=== PATIENT | male | born 1945 | race Caucasian/White ===

== ENCOUNTER 2017-09-19 13:56 | Emergency (ER) | payer BC, MEDICARE ==
[2017-09-19] MEDS ORDERED: TORAdol 30 mg Injection IM ONE (15:00)
--- NOTE | 2017-09-19 15:03 | ERPHSYRPT ---
- History of Present Illness Time Seen by Provider: 09/19/17 15:00 Source: patient Exam Limitations: no limitations Physician History: mild to mod ache pain is positional for one week after falling on right foot and hand, no bleeding, not dizzy, not other injury, pt is ambulatory Allergies/Adverse Reactions: No Known Drug Allergies Allergy (Unverified 09/19/17 15:01) Home Medications: Carvedilol 12.5 mg [Coreg 12.5 mg] 12.5 mg PO BID 09/19/17 [History] Escitalopram Oxalate 10 mg [Lexapro 10 MG] 10 mg PO DAILY 09/19/17 [History] Losartan Potassium [Losartan Potassium] 50 mg PO HS 09/19/17 [History] Lovastatin [Lovastatin] 40 mg PO HS 09/19/17 [History] Rivaroxaban [Xarelto] 20 mg PO DAILY 09/19/17 [History] Spironolactone [Spironolactone] 25 mg PO DAILY 09/19/17 [History] - Review of Systems Respiratory: No Dyspnea Cardiac: No Chest Pain Abdominal/Gastrointestinal: No Abdominal Pain Musculoskeletal: Fall, Injury, Joint Pain, No Back Pain, No Neck Pain Neurological: No Dizziness - Nursing Vital Signs Nursing Vital Signs: Initial Vital Signs Temperature 99.4 F 09/19/17 13:57 Pulse Rate 70 09/19/17 13:57 Respiratory Rate 18 09/19/17 13:57 Blood Pressure 128/74 09/19/17 13:57 Pain Scale Pain Intensity 7 - Physical Exam General Appearance: no apparent distress Neck Exam: normal inspection Respiratory Exam: No respiratory distress Extremity Exam: pelvis stable, other (sts right foot and hand, sen and pulses intact, aliyah, nontender hip and elbow and shoulder) Neurologic Exam: alert, oriented x 3, cooperative Skin Exam: warm, dry - Course Nursing assessment & vital signs reviewed: Yes - Radiology Exams Foot X-ray Interpretation: Interpreted by me, No Fracture Hand X-ray Interpretation: Interpreted by me, No Fracture Lower Leg X-ray Interpretation: Interpreted by me, No Fracture Ordered Tests: Active Orders 24 hr Category Date Time Status Crutches STAT Care 09/19/17 16:57 Ordered FOOT (MINIMUM 3 VIEWS) Stat Exams 09/19/17 15:23 Taken HAND (MINIMUM 3 VIEWS) Stat Exams 09/19/17 15:23 Taken LOWER LEG Stat Exams 09/19/17 15:23 Taken Medication Summary Discontinued Medications Generic Name Dose Route Start Last Admin Trade Name Ty PRN Reason Stop Dose Admin Ketorolac Tromethamine 60 mg 09/19/17 15:00 09/19/17 15:25 Toradol 30 Mg Injection IM 09/19/17 15:01 60 mg STAT ONE Administration Ketorolac Tromethamine Confirm 09/19/17 15:23 Toradol 30 Mg Injection Administered 09/19/17 15:24 Dose 60 mg .ROUTE .STK-MED ONE - Progress Progress: improved Discussed with Dr.: Other (Dr Mills) Will see patient in: office Counseled pt/family regarding: diagnosis, need for follow-up, rad results - Departure Time of Disposition: 16:59 Departure Disposition: Home Clinical Impression: Contusion Qualifiers: Encounter type: initial encounter Contusion area: foot Laterality: right Qualified Code(s): S90.31XA - Contusion of right foot, initial encounter Condition: Stable Critical Care Time: No Referrals: REECE MILLS [Primary Care Provider] - Instructions: Contusion (DC) Additional Instructions: ice elevation and motrin, crutches, see your doctor, return if worse
[2017-09-19 15:08] VITALS: BP 128/74
[2017-09-19] MEDS ORDERED: TORAdol 30 mg Injection ONE (15:23)
[2017-09-19 15:30] VITALS: PULSE 86; O2SAT 98
--- NOTE | 2017-09-20 08:35 | XRAY ---
Indication: Pain following fall. Comparison: None 2 views of the right lower leg demonstrates medial/lateral malleolar tip well-circumscribed ossifications either degenerative versus old injury. No other bony, articular, or soft tissue abnormalities.
--- NOTE | 2017-09-20 08:35 | XRAY ---
Indication: Pain following fall. Comparison: None 3 nonweightbearing views of the right foot demonstrates small posterior heel spur and medial/lateral malleolar tip well-circumscribed ossifications either degenerative versus old injury. No other bony, articular, or soft tissue abnormalities.
--- NOTE | 2017-09-20 08:37 | XRAY ---
Indication: Pain following fall. Comparison: None 3 views of the right hand demonstrates advanced 1st metacarpal multangular degenerative changes and tiny posterior 3rd MCP soft tissue foreign body. No other bony, articular, or soft tissue abnormalities.
== END 2017-09-19 17:22 | disposition home or self-care (01) ==
LOC: ED 13:56
DX: S90.31XA Contusion of right foot, initial encounter (principal); M79.671 Pain in right foot; M79.641 Pain in right hand; W19.XXXA Unspecified fall, initial encounter; Z79.899 Other long term (current) drug therapy
CPT/HCPCS: 73130; 73590; 73630; 96372; 99283; 99284; J1885

== ENCOUNTER 2022-04-13 10:31 | Day surgery (SDC) | payer BC ==
--- NOTE | 2022-04-13 08:02 | HP ---
DATE OF SURGERY: 04/13/2022 HISTORY OF PRESENT ILLNESS: The patient had a fissure had a trial of conservative management and some rectal bleeding. He tried a trial of conservative management of diltiazem cream keeping his bowel movements soft to avoid straining, to keep his bowel movements soft and bulky for a few weeks but failed to improve with some pain in the fissure. He failed conservative trial. He has a history of rectal bleeding. He is in need of colonoscopy possible lateral sphincterotomy and depending on hemorrhoids possible internal hemorrhoid banding pending operative findings. PAST MEDICAL HISTORY: Hypertension, depression, hyperlipidemia, heart disease, diabetes. He had COVID in the past. Multiple medical problems in the past. 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 Back surgery. Appendectomy. Internal defibrillator pacemaker. Tonsillectomy. Colonoscopy years ago. MEDICATIONS: Diltiazem cream in the past. Low dose aspirin, carvedilol, escitalopram, flaxseed oil, furosemide, glipizide, losartan, lovastatin, multivitamins, spironolactone. He had been on Xarelto in the past. ALLERGIES: NKDA. FAMILY HISTORY: Negative for colon cancer. SOCIAL HISTORY: Former smoker quit in . REVIEW OF SYSTEMS: Fourteen systems reviewed negative or noncontributory as above and per preadmission questionnaire. He denied any chest pain or palpitations currently. PHYSICAL EXAMINATION: His recent vitals are 213 pounds, height 71 inches, BMI 29.2. He is afebrile, respirations 18. GENERAL: No acute distress. HEENT: Sclerae nonicteric. NECK: No JVD. CHEST: Equal excursion, nonlabored breathing. CVS: Regular rate and rhythm. ABDOMEN: Soft. No peritoneal signs. EXTREMITIES: No significant edema. NEURO: Alert, oriented, moving extremities symmetrically. RECTAL: Persistent anal fissure failed to improve, failed conservative management. PSYCH: Appropriate mood and affect. IMPRESSION: The patient had some pain and persistent anal fissure that failed conservative management. Will proceed with outpatient colonoscopy with possible lateral internal sphincterotomy possible internal hemorrhoid banding as an outpatient. General risk of bleeding or infection, risk of bowel injury or perforation, risk of missed or nondiagnosis or incomplete exam, general risk of anesthesia or sedation, possibility of failure to heal of the lateral sphincterotomy, possibly failing to heal the fissure possibly requiring tertiary referral or other treatments. Small risk of sphincter spasm, irritability or dysfunction transient or intermission coordinator, risk of progression of hemorrhoid disease but not limited to. He understands and agrees to the planned procedure, will proceed with outpatient colonoscopy, possible lateral internal sphincterotomy, possible internal hemorrhoid banding pending operative findings.
[2022-04-13] MEDS ORDERED: ANUSOL-HC 2.5% CREAM 30 GM TOP ONE (10:32)
[2022-04-13] MEDS ORDERED: MEFOXIN 2 GM PREMIX** 2 GM/50 ML ML IV ONE (10:57)
[2022-04-13] MEDS ORDERED: Lactated Ringers 1,000 ML IV ONE (10:57)
[2022-04-13] MEDS ORDERED: Lactated Ringers 1,000 ML IV SCH (11:00)
[2022-04-13] MEDS ORDERED: MEFOXIN 2 GM PREMIX** 2 GM/50 ML ML IV SCH (11:00)
[2022-04-13 12:23] LABS: ALBUMIN 3.8 g/dL (3.5-5.0); ANION GAP 7.5 MEQ/L (5-15); BILIRUBIN,TOTAL 1.4 mg/dL (0.2-1.3); Calcium 8.9 mg/dL (8.4-10.2); Creatinine 1 1.34 mg/dL (0.66-1.25); EST GLOMERULAR FILTRATION RATE 55.2 ML/MIN; Potassium 4.3 mmol/L (3.5-5.1); Total Protein 6.7 g/dL (6.3-8.2)
[2022-04-13] MEDS ORDERED: Quelicin Fliptop 200 MG/10 ML ONE (14:21)
[2022-04-13] MEDS ORDERED: DIPRIVAN 200 MG/20 ML IV ONE (14:21)
[2022-04-13] MEDS ORDERED: Xylocaine-Mpf 2% 5 Ml Vial ONE (14:22)
[2022-04-13] MEDS ORDERED: SUBLIMAZE 100 MCG/2 ML ONE ×2 (14:22→15:26)
[2022-04-13] MEDS ORDERED: Pre-Attached Lta Kit TP ONE (14:23)
[2022-04-13] MEDS ORDERED: EXPAREL 133 MG/10 ML VIAL IJ ONE (14:28)
[2022-04-13] MEDS ORDERED: Sensorcaine 0.25% 10 ML ONE (14:48)
[2022-04-13] MEDS ORDERED: PHENYLEPHRINE HCL ONE (15:05)
[2022-04-13] MEDS ORDERED: Zofran 4 MG/2 ML VIAL ONE (15:05)
[2022-04-13 16:52] VITALS: BP 162/93; PULSE 65; O2SAT 96
--- NOTE | 2022-04-14 09:43 | OP ---
SURGERY DATE/TIME: 04/13/2022 1420 PREOPERATIVE DIAGNOSES: 1) History of some rectal bleeding, persistent anal fissure. 2) Internal and external hemorrhoids POSTOPERATIVE DIAGNOSES: 1) Small polyps transverse colon and sigmoid colon. 2) Diverticulosis. 3) Internal and external hemorrhoids with superficial posterior anal fissure. PROCEDURES: 1) Colonoscopy to cecum with hot snare polypectomy sigmoid colon polyp. 2) Hot biopsy polypectomy second sigmoid colon polyp. 3) Hot biopsy polypectomy of two small transverse colon polyps. 4) Cold biopsy of the colon to evaluate for microscopic colitis. 5) Exam under anesthesia. 6) Limited lateral internal sphincterotomy. 7) Drainage of small thrombosed external hemorrhoid (two small areas one of which was drained through the limited lateral sphincterotomy incision). 8) Internal hemorrhoid banding x4 columns. SURGEON: Dr. Erick Wesley. ANESTHESIA: General. ESTIMATED BLOOD LOSS: Minimal. INDICATIONS: As noted above. Risks and benefits explained in detail but not limited to and consent obtained. DESCRIPTION OF PROCEDURE AND FINDINGS: The patient is taken to the operative room. General anesthesia is induced. He is then placed in lateral position. Appropriate padding and positioning per anesthesia and OR staff. Digital rectal exam revealed internal and external hemorrhoids, superficial persistent posterior anal fissure. The scope was then carefully passed up and navigated through slightly tortuous sigmoid, descending, transverse and ascending colon. With the external pressure around to the cecum. Appendiceal orifice and ileocecal valve well visualized. The tip of the ileum was grossly unremarkable. The scope was carefully withdrawn. Prep overall was fair. There were some areas of liquidy semisolid stool just slightly limiting the exam for small lesions. The scope is slowly and carefully withdrawn. Small polyps x3 removed with hot biopsy polypectomy in transverse colon whether these are early polyps versus hyperplastic lesion were removed with hot biopsy forceps. Good hemostasis was noted. There were a few small diverticula in the left colon. In the sigmoid colon there was a slightly larger 3 to 3.5 mm polyp that was removed with hot snare polypectomy with brief bursts of cautery. He did have some small diverticulosis. In his left colon there is a second smaller early polyp versus hyperplastic lesion removed with hot biopsy polypectomy and hot biopsy forceps. Good hemostasis noted. The scope is withdrawn. Photo documented the appendiceal orifice and valve area. The scope is withdrawn. The patient is then repositioned in lithotomy position. Prepped with some Betadine, some 0.25% Marcaine along with Exparel was carefully infiltrated around the perirectal/perianal space. Once this is accomplished, half-vance retractor as he was having the pain. He had superficial posterior anal fissure drained through lateral internal sphincterotomy. He also had three internal and external hemorrhoids. It was felt he warranted trial internal hemorrhoid banding. At this point more in the right posterior lateral area he had small areas with a little bit of thrombus and external hemorrhoid. Small incisions made on the right lateral aspect with a chenega blade and limited lateral sphincterotomy in the last few fibers of the internal sphincter carefully lysed. Pressure is held for a few minutes. The thrombosed external hemorrhoids part of the thrombosis was carefully milked out of this incision. There was one other tiny thrombosed external component whether he is having pain in this a small incision was made over the top of that and this to evacuated. These two small areas appeared to have adequate hemostasis and they were closed with some 3-0 Monocryl. At this point proceed with the internal hemorrhoid banding accomplished in left lateral position in right anterior position. There seemed to be a right posterior component. There seemed to actually be a separate column more in the right lateral position so these three columns were banded with a suction chinchilla machine operator with a good tuft of tissue noted in each location. Findings discussed with the family out in the waiting area. I explained that this patient was borderline as there is possibility that his external component would not improve, became progressive over time, he might need to consider excisional therapy down the road but would give him a trial of this less invasive procedure first. Continue high fiber diet or Metamucil to titrate soft bulky stools, avoid straining at the time of bowel movements. He was given a script for some pain medications. The computer here was not working so handwritten with electronic waiver number on it. Otherwise, take sitz baths once or twice a day. I will see him back in the office next week.
== END 2022-04-13 17:10 | disposition home or self-care (01) ==
LOC: SDC 10:31
PROVIDERS: ATTEND Surgery
DX: K60.2 Anal fissure, unspecified (principal); Z87.19 Personal history of other diseases of the digestive system; K64.4 Residual hemorrhoidal skin tags; K64.8 Other hemorrhoids; K63.5 Polyp of colon; K57.30 Diverticulosis of large intestine without perforation or abscess without bleeding; E11.9 Type 2 diabetes mellitus without complications; I10 Essential (primary) hypertension
CPT/HCPCS: 36415; 80053; 82947; 93005; 99100; J0330; J0694; J2370; J2405; J2704; J3010; A9270-GY